=== PATIENT | male | born 2005 | race Two or more races ===

== ENCOUNTER 2025-05-10 03:28 | Emergency (ER) | payer MEDICAID ==
[~2025-05-10] VITALS: Ht 165.1 cm; Wt 70.0 kg
[2025-05-10 03:36] VITALS: TEMP 97.9
[2025-05-10] MEDS: SODIUM CHLORIDE 0.9% 1,000 ML IV ONE (03:47)
[2025-05-10 04:00] LABS: PLATELET COUNT (AUTO) 381 K/uL (150-450); RED BLOOD CELL COUNT(AUTO) 4.93 MIL/uL (4.50-5.90); RED CELL DISTRIBUTION WIDTH 13.6 % (11.5-14.5); WHITE BLOOD COUNT (AUTO) 13.8 K/uL (4.5-11.0)
[2025-05-10 04:34] LABS: CALCIUM, TOTAL 9.3 mg/dL (8.8-10.5); CREATININE 1.27 mg/dL (0.60-1.30); GLOMERULAR FILTR. RATE CALC > 60 mL/min (>60); GLUCOSE,RANDOM 278 mg/dL (70-110); UREA NITROGEN, BLOOD 14 mg/dL (7-18)
[2025-05-10 04:35] LABS: SODIUM SERUM 135 mmol/L (136-145)
[2025-05-10] MEDS: ONDANSETRON HCL 4 MG/2 ML VIAL IVP ONE (05:05)
[2025-05-10 06:20] VITALS: BP 136/90; PULSE 105; RESP 16; O2SAT 95
== END 2025-05-10 07:29 | disposition home or self-care (01) ==
LOC: EMS 04:01
DX: T50.901A Poisoning by unspecified drugs, medicaments and biological substances, accidental (unintentional), initial encounter (principal); J45.909 Unspecified asthma, uncomplicated; F15.90 Other stimulant use, unspecified, uncomplicated; Y92.89 Other specified places as the place of occurrence of the external cause
CPT/HCPCS: 99283; 96374; 96361; 80048; 85025; 36415; J2405; J7030